=== PATIENT | male | born 1955 | race American Indian/Alaskan Native ===

== ENCOUNTER 2016-12-12 08:31 | Inpatient (IN) | payer BC ==
--- NOTE | 2016-12-05 11:12 | Anesthesia Consultation ---
Anesthesia Consult and Med Hx Date of service: 12/05/16 (Scheduled for thyroidectomy on 12/12/16) - Airway Anesthetic Teeth Evaluation: Good ROM Head & Neck: Adequate Mental/Hyoid Distance: Adequate Mallampati Class: Class I Intubation Access Assessment: Probably Good - Pulmonary Exam CTA: Yes - Cardiac Exam Cardiac Exam: RRR - Pre-Operative Health Status ASA Pre-Surgery Classification: ASA2 Proposed Anesthetic Plan: General - Pre-Anesthesia Comment Pre-Anesthesia Comments: Pt reports that he had issues with nausea and vomiting post-op and was slow to awaken x 3 surgeries. He states that the issue is with "Fentanyl and not Propofol". Will pre-medicate with pepcid, zofran and scop- patch. - Pulmonary Hx Smoking: No (Quit 20 years ago) Hx Asthma: No - Cardiovascular System Hx Hypertension: No - Central Nervous System Hx Seizures: No - Gastrointestinal Hx Gastroesophageal Reflux Disease: No - Endocrine Hx Renal Disease: No Hx Non-Insulin Dependent Diabetes: No Hx Thyroid Disease: Yes (Thyroid goiter- denies dysphagia, hoarseness or SOB.) - Other Systems Hx Alcohol Use: Yes (OCCASSIONALLY) Hx Obesity: No - Additional Comments Anesthesia Medical History Comments: Hx hyperlipidemia and palpitations. Negative cardiac w/u per pt.
[~2016-12-12 08:31] MED LIST: LACTATED RINGERS 1,000 ML IV SCH; PEPCID PO NR; REGLAN PO NR; TRANSDERM-SCOP TD NR; VERSED IV NR; ZOFRAN IV NR
[2016-12-12] MEDS ORDERED: NACL BACTERIOSTATIC INFILTRATI ONE (08:38)
--- NOTE | 2016-12-12 08:51 | Admit Criteria Form ---
Admission Criteria Documentation: AMBULATORY SURGERY EXCEPTION CRITERIA Ambulatory Surgery Exception Criteria ( Place 'X' for any and all applicable criteria): Surgery or procedure performed on ambulatory basis may require inpatient stay for[A] ANY ONE of the following(1)(2)(3)(4)(5)(6)(7)(8)(9): [X] I. A preoperative situation, condition, or finding that warrants inpatient stay as indicated by ANY ONE of the following: [X] a) Inpatient care needed because of severity of a disease or condition rather than the surgery (eg, severe cardiac or respiratory disease, severe infection) (15) (16 ) (17) (18) [] b) Emergent procedure (eg, angioplasty for acute ischemia)(19) [] c) Complex surgical approach or situation as indicated by ANY ONE of the following(3): [] i) Open approach needed instead of usual endoscopic, transcatheter, or other less invasive procedure [] ii) Difficult approach because of previous operation [] iii) Airway monitoring required after open neck procedures(20)(21) [] iv) Large mass requiring unusually extensive dissection [] v) Additional complicating feature requiring inpatient care (eg, drain management)(22(23): [] d) Major surgery in a pt with high anesthetic risk as indicated by ANY ONE of the following (2)(3)(5)(7)(8): [] i) ASA risk class III or higher (severe systemic disease impairing function) [D] [] ii) Advanced age (eg, older than 85 years)(14)(24) [] iii) Symptomatic heart failure(25) [] iv) Symptomatic asthma or COPD(8)(21) [] v) Morbid obesity with hemodynamic or respiratory problems(20)( 21)(26)(27) [] vi) Obstructive sleep apnea(20)(21) [] vii) Former premature infants who are younger than 60 weeks [] viii) High risk for severe postoperative abnormalities (eg, severe postoperative hypocalcemia after parathyroidectomy for severe hyperparathyroidism)(27)( 28) [] ix) Unstable angina(25) [] e) Drug-related risk requiring inpatient stay as indicated by ANY ONE of the following(5)(10)(14)(32)(33) [] i) Procedure requires discontinuing drugs or other therapy (eg , antiarrhythmic medication, antiseizure medication), which necessitates inpatient observation or treatment.(18)(31) [] ii) Major surgery and high risk drug use as indicated by ANY ONE of the following: [] 1) Active abuse of cocaine or similar drug [] 2) Monoamine oxidase inhibitor use [] 3) Other drug identified as posing risk [] f) Inadequate outpatient care situation as indicated by ANY ONE of the following(5)(10)(14)(32)(33) [] i) Patient lives remote from medical facility and procedure has urgent complication potential, and temporary nearby residence cannot be arranged [] ii) Patient will have postprocedure incapacitation and inadequate assistance at home, or alternative level of care cannot be arranged. [] iii) Patient will have long general anesthesia or procedure side effect resolution time, and competent person to stay with patient on first postoperative night at home or alternative level of care cannot be arranged. []iv) Other inadequate outpatient situation that cannot be handled by other means [] II. A perioperative event, condition, or finding that warrants inpatient stay as indicated by ANY ONE of the following (1)(2)(3): [] a) Inadequate physiologic recovery: cardiovascular, respiratory, or hemodynamic status not normal or near preoperative baseline(18) [] b) Hemodynamic instability [] c) Patient not alert with near normal or baseline mental status [] d) Temperature not normal or as expected and not appropriate for outpatient treatment of condition [] e) Ambulatory or appropriate activity level status not yet achieved post procedure [E](34)(35)(36) [] f) Operative site not appropriate (eg, unexpected or excessive drainage or bleeding) [] g) Postoperative effects not resolved or adequately managed (eg, significant pain or vomiting not appropriate for outpatient or next level of care)(10)(12) [] h) Complicating features requiring inpatient care as indicated by ANY ONE of the following(37): [] i) Severe complications of procedure (eg, bowel injury, airway compromise, vascular injury,severe hemorrhage) [] ii) Extensive (eg, dissection far beyond usual scope of procedure ) or prolonged (eg, 120 minutes beyond usual) surgery needed requiring inpatient postoperative care [] iii) Conversion to an open or complex procedure that requires inpatient care (eg, open vs laparoscopic cholecystectomy, abdominal vs vaginal hysterectomy)(38) [] iv) Comorbid condition or test result identified during or post procedure that requires inpatient care (7) [] v) Malignant hyperthermia(30) [] vi) Other complicating feature requiring inpatient care(22)(23) Inpatient stay may be needed until ALL of the following are present (1)(2)(3)(4) (5)(6)(10)(14)(33)(40): []a) Physiologic recovery: cardiovascular, respiratory, and hemodynamic status normal or near preoperative baseline []b) Hemodynamic stability []c) Patient alert, with near normal or baseline mental status []d) Temperature appropriate: patient afebrile or temperature appropriate for outpt treatment of condition []e) Activity level appropriate: ambulatory or appropriate activity level post procedure []f) Operative site appropriate as indicated by ALL of the following: []i) Site dry or with expected drainage []ii) Any blood noted is as expected for procedure. []g) Postoperative effects resolved or managed as indicated by ALL of the following: []i) Pain management appropriate for outpatient (or next level of) care(10) []ii) Minimal nausea and vomiting: if present, successfully treated with oral medication(12) []iii) Headache, dizziness, or drowsiness (if present) are mild. []h) Voiding status acceptable as indicated by ANY ONE of the following: []i) Voiding spontaneously []ii) No voiding but instructions given for follow-up in 6 to 8 hours []iii) Urinary catheter in place, and instructions given for follow-up []i) Complicating features requiring inpatient care manageable at a lower level of care(37) []j) Comorbid conditions manageable at a lower level of care(37) The original [employer] content created by [employer] has been revised. The portions of the content which have been revised are identified through the use of italic text or in bold, and [employer] has neither reviewed nor approved the modified material. All other unmodified content is copyright Victoria [employer]umb. Please see references footnoted in the original Victoria Plumb edition 2016 Admission Criteria Met: Yes
[2016-12-12 09:10] LABS: Hematocrit 41.4 % (35.5-45.6); Hemoglobin 13.5 gm/dl (11.8-15.2); Mean Corpuscular HGB Conc 33 % (32-34); Mean Corpuscular Hemoglobin 28 pg (28-32); Mean Corpuscular Volume 87 fl (84-94); Platelet Count 210 K/mm3 (140-440); Red Blood Count 4.78 M/mm3 (3.65-5.03); Red Cell Distribution Width 14.9 % (13.2-15.2); White Blood Count 4.4 K/mm3 (4.5-11.0)
[2016-12-12 09:22] LABS: Anion Gap 15 mmol/L; Blood Urea Nitrogen 13 mg/dL (9-20); Calcium 9.2 mg/dL (8.4-10.2); Carbon Dioxide 29 mmol/L (22-30); Chloride 102.8 mmol/L (98-107); Glucose 86 mg/dL (75-100); Potassium 3.9 mmol/L (3.6-5.0); Sodium 143 mmol/L (137-145)
[2016-12-12] MEDS ORDERED: NACL 0.9% 1000 ML 1,000 ML IV SCH (10:00)
[2016-12-12] MEDS ORDERED: ANCEF/STERILE WATER 2 GM/20 ML 20 ML IV NR (10:00)
[2016-12-12] MEDS ORDERED: ZOFRAN IV PRN (10:05)
[2016-12-12] MEDS ORDERED: NACL 0.45% 1000 ML 1,000 ML IV SCH (11:00)
[2016-12-12] MEDS ORDERED: DIPRIVAN 10 MG/ML IV ONE (11:29)
[2016-12-12] MEDS ORDERED: DILAUDID ONE (11:29)
[2016-12-12] MEDS ORDERED: XYLOCAINE MPF 2% ONE (11:33)
[2016-12-12] MEDS ORDERED: ZEMURON IV ONE ×2 (11:33→13:10)
[2016-12-12] MEDS ORDERED: NACL 0.9% IR ONE ×2 (11:52→13:09)
[2016-12-12] MEDS ORDERED: ROBINUL ONE (11:52)
--- NOTE | 2016-12-12 12:22 | Anesthesia Day of Surgery ---
Anesthesia Day of Surgery - Day of Surgery Patient Examined: Yes Patient H&P Reviewed: Yes Patient is NPO: Yes
[2016-12-12] MEDS ORDERED: ePHEDrine SULFATE ONE (12:48)
[2016-12-12] MEDS ORDERED: NEO SYNEPHRINE/NS Syringe(OR USE) IV ONE (12:57)
[2016-12-12] MEDS ORDERED: LACTATED RINGERS 1,000 ML ONE (12:59)
[2016-12-12] MEDS ORDERED: ADRENALIN IV ONE (13:09)
[2016-12-12] MEDS ORDERED: XYLOCAINE 1% 20 mL INFILTRATI ONE (13:09)
[2016-12-12] MEDS ORDERED: MARCAINE-EPI 0.5%-1:200,000 INFILTRATI ONE ×2 (13:09)
[2016-12-12] MEDS ORDERED: LACTATED RINGERS IV ONE (13:09)
[2016-12-12] MEDS ORDERED: BLOXIVERZ ONE (14:09)
--- NOTE | 2016-12-12 15:10 | Post Anesthesia Evaluation ---
- Post Anesthesia Evaluation Patient Participated: Yes Airway Patent: Yes Stable Respiratory Function: Yes Nausea/Vomiting: No Temp > 96.8F: Yes Pain Manageable: Yes Adequeate Hydration: Yes Anesthesia Complications: No Block Receding Appropriately: Not Applicable Patient on Ventilator: No Other Comments: prolonged emergence. patient extubated in PACU
[2016-12-12] MEDS: ANCEF/NS 1 GM/50 ML 50 ML IV SCH (18:00)
[2016-12-12] MEDS: MORPHINE IV PRN ×2 (18:57→23:50)
[2016-12-13] MEDS: ANCEF/NS 1 GM/50 ML 50 ML IV SCH (02:10)
[2016-12-13] MEDS ORDERED: LOVENOX SUB-Q SCH (10:00)
--- NOTE | 2016-12-13 16:17 | Discharge Summary ---
Providers - Providers Date of Admission: 12/12/16 08:31 Date of discharge: 12/13/16 Attending physician: JODY MIRELES Hospitalization Reason for admission: Post op observation Condition: Stable Procedures: Laparoscopic right thyroid lobectomy Hospital course: underwent surgery and admitted for observation. Doing well and ready to be discharged Disposition: DISCHARGED TO HOME OR SELFCARE Core Measure Documentation - Palliative Care Palliative Care/ Comfort Measures: Not Applicable - Core Measures Any of the following diagnoses?: none Exam - Constitutional Vitals: Temp Pulse Resp BP Pulse Ox 97.3 F L 60 20 112/64 99 12/13/16 12:04 12/13/16 12:04 12/13/16 12:04 12/13/16 12:04 12/13/16 12:04 General appearance: Present: no acute distress, well-nourished - EENT ENT: other (no hoarseness) - Neck Neck: Present: other (mild swelling, appropriate TTP) - Respiratory Respiratory effort: normal Respiratory: bilateral: CTA - Cardiovascular Heart Sounds: Present: S1 & S2. Absent: rub, click - Abdominal General gastrointestinal: Present: soft, non-tender, non-distended, normal bowel sounds - Neurologic Neurologic: CNII-XII intact, moves all extremities Plan Activity: no restrictions Weight Bearing Status: Full Weight Bearing Diet: regular Wound: open to air Follow up with: NUBIA SKINNER [Other] - 7 Days JODY MIRELES MD [Staff Physician] - 7 Days
[2016-12-13 18:19] VITALS: BP 117/61
== END 2016-12-13 18:30 | disposition home or self-care (01) | DRG 627 ==
LOC: 3A 08:31 → 2B-SURG 15:40
PROVIDERS: ADMIT Specialist; ATTEND Specialist
PROC: 0GB Endocrine System, Excision (ICD-10-PCS; principal; 2016-12-12)
DX: E04.1 Nontoxic single thyroid nodule (principal); K43.9 Ventral hernia without obstruction or gangrene; Z98.890 Other specified postprocedural states; Z83.3 Family history of diabetes mellitus; Z80.9 Family history of malignant neoplasm, unspecified; Z82.49 Family history of ischemic heart disease and other diseases of the circulatory system; Z79.899 Other long term (current) drug therapy; Z88.2 Allergy status to sulfonamides; Z88.8 Allergy status to other drugs, medicaments and biological substances
CPT/HCPCS: 36415; 80048; 85027; 88307; 88342; A4217; C1726; J0171; J0690; J1170; J2250; J2270; J2370; J2405; J2704; J2710; J7120